=== PATIENT | male | born 1980 | race Caucasian/White ===

== ENCOUNTER → 2024-02-28 | Outpatient (CLI) | payer OTHER ==
[2024-02-29 02:11] LABS: Basophils # (A) 0.02 X 10*3/uL (0.00-0.10); Basophils % (A) 0.3 %; Eosinophils # (A) 0.07 X 10*3/uL (0.04-0.35); Eosinophils % (A) 0.9 %; HCT 46.1 % (39.6-50.0); HGB 14.5 g/dL (13.0-17.0); Lymphocytes # (A) 2.77 X 10*3/uL (0.90-5.00); Lymphocytes % (A) 34.8 %; MCH 26.2 pg (27.0-32.0); MCHC 31.5 g/dL (32.0-37.0); MCV 83.2 FL (80.0-97.0); Mean Platelet Volume 11.9 FL (9.5-12.2); Monocytes # (A) 0.36 X 10*3/uL (0.20-1.00); Monocytes % (A) 4.5 %; NRBC Per 100 WBC 0 X 10*3/uL (0.00-0.01); Neutrophils # (A) 4.71 X 10*3/uL (1.80-7.70); Neutrophils % (A) 59.2 %; Platelet Count 373 X 10*3/uL (140-440); RBC 5.54 X 10*6/uL (4.40-5.60); RDW 14.8 % (11.5-14.5); WBC 7.95 X 10*3/uL (4.50-10.00)
[2024-02-29 02:26] LABS: Erythrocyte Sedimentation Rate 8 mm/Hr (0-15)
[2024-02-29 02:41] LABS: ALT 25 U/L (10-49); AST 26 U/L (14-35); Alkaline Phosphatase 71 U/L (41-126); BUN/Creat Ratio 16.38 Ratio (12.00-20.00); Blood Urea Nitrogen 13.1 mg/dL (9.0-27.0); Calcium 9.2 mg/dL (8.7-10.3); Carbon Dioxide 24.7 mmol/L (21.6-31.8); Chloride 104 mmol/L (96-109); Glucose 104 mg/dL (70-110); Potassium 4.3 mmol/L (3.5-5.5); Sodium 138 mmol/L (135-145); Total Bilirubin 0.2 mg/dL (0.3-1.2)
[2024-03-04 13:37] LABS: C1 Esterase Inhibitor, Protein 33 mg/dL (21-39)
[2024-03-05 22:44] LABS: C1 Esterase Inhibitor Fnc Assy >100 %
[2024-03-06 07:36] LABS: Albumin 3.65 g/dL (3.80-4.90)
== END | disposition home or self-care (01) ==
LOC: LABWHC1 16:04
PROVIDERS: ATTEND Internal Medicine
DX: L50.9 Urticaria, unspecified (principal)
CPT/HCPCS: 36415; 80053; 84165; 84166; 84443; 85025; 85652; 86038; 86140; 86160; 86161; 86332

== ENCOUNTER → 2024-03-19 | Outpatient (CLI) | payer OTHER ==
--- NOTE | 2024-03-23 18:44 | CT ---
EXAMINATION TYPE: CT chest wo con CT DLP: Combined DLP of 2083.5 mGycm, Automated exposure control for dose reduction was used. DATE OF EXAM: 03/19/2024 7:33 PM COMPARISON: Chest x-ray 01/04/2016 . CLINICAL INDICATION:Male, 43 years old with history of R19.4 CHANGE BOWEL HABIT R10.9 ABD PAIN R06.02 SOB; PHH, SOB. Cough. COPD. TECHNIQUE: CT of the chest was performed without contrast. Axial soft tissue and lung algorithm image s at 5 mm slice thickness. Coronal and sagittal 3 mm reconstructions. 10 mm lung MIPS. Contrast used: mL of (None if empty) Oral contrast used: (None if empty) FINDINGS: Examination limited by lack of IV contrast. Also evaluation for any nodules under 5 mm is limited due to the slice thickness. LUNGS/ PLEURA: There appear to be mild emphysematous changes in the lung apices, with small cystic ai rspaces noted. There is a larger 2.3 cm cystic airspace with relatively thin circumscribed margin in the right upper lobe compatible with a bulla. No airspace consolidation, pleural effusion, or pneumot horax. No sizable lung nodules are detected. No evidence of mass. AIRWAY: Central airways are patent. There is a suggestion of a thin web in the mid bronchus intermedi us. LOWER NECK: No significant findings. MEDIASTINUM: No enlarged nodes by CT size criteria. No hilar adenopathy in the limits of unenhanced scan. HEART: Normal heart size. Minimal coronary artery calcification.. No appreciable pericardial effusion . VASCULATURE: No appreciable aortic atherosclerotic calcification.. Ascending aorta is 3.3 CM, descen ding is 2.5 CM. Aorta is considered within normal limits. Pulmonary trunk measures 2.8 CM. Pulmonary trunk is normal in size. Vessels otherwise not further ass essed without contrast. SOFT TISSUES/LYMPH NODES: Unremarkable soft tissues. No axillary adenopathy. UPPER ABDOMEN: No significant findings. Contrast seen in the stomach and bowel. Please refer to separ ate CT abdomen and pelvis report for further description of findings. MUSCULOSKELETAL: No acute bony abnormality in the chest. Minimal degenerative change of the shoulders and visualized spine. IMPRESSION: 1. Mild upper lobe pulmonary emphysematous changes. There is a 2.3 cm bulla in the right upper lobe. 2. No acute chest abnormality.
--- NOTE | 2024-03-25 08:47 | CT ---
EXAMINATION TYPE: CT abdomen pelvis w con CT DLP: Combined DLP of 2083.5 mGycm, Automated exposure control for dose reduction was used. DATE OF EXAM: 03/19/2024 7:33 PM COMPARISON: None. CLINICAL INDICATION:Male, 43 years old with history of R19.4 CHANGE BOWEL HABIT R10.9 ABD PAIN R06.02 SOB; Rt side abdominal pain. Change in bowel habit. TECHNIQUE: Axial CT of the abdomen and pelvis. Sagittal and coronal reformats were created on a [employer] workstation. Contrast used:100 ml mL of Isovue 300 with IV Contrast, (none if empty) Oral contrast used: with Oral Contrast (none if empty) FINDINGS: LOWER CHEST: Please see separate CT chest for findings ABDOMEN LIVER: Suspect mild steatosis. No focal lesions seen. Portal vein is enhancing. GALLBLADDER AND BILE DUCTS: Unremarkable gallbladder. No biliary ductal dilatation. PANCREAS: Unremarkable. SPLEEN: Unremarkable. ADRENAL GLANDS: Unremarkable. KIDNEYS AND URETERS: Kidneys enhance symmetrically. There is no visible calculus or hydronephrosis. A 3.7 cm cyst in the posterior left kidney. PELVIS BLADDER: Unremarkable REPRODUCTIVE: Unremarkable. ABDOMEN & PELVIS STOMACH AND BOWEL: Contrast traverses the stomach and small bowel loops without evidence of obstructi on. There is some contrast remaining in the stomach and the duodenum, with the majority of the contra st in the distal small bowel and colon. Appendix is contrast-filled and appears within normal limits . Fatty infiltration of the ileocecal valve. Contrast mixed with small amounts of stool throughout the majority of the colon, with not really any contrast beyond the proximal descending colon. More dista lly there is mild to moderate stool throughout the distal descending and sigmoid colon, without clear evidence to suggest an acute colonic abnormality by this exam. PERITONEUM/RETROPERITONEUM: No evidence of pneumoperitoneum or free fluid. VASCULATURE: Mild atherosclerotic calcifications are present throughout the abdominal aorta and its b ranches. No evidence of aortic aneurysm. IVC appears of normal caliber. LYMPH NODES: No enlarged nodes by CT size criteria. SOFT TISSUE/ABDOMINAL WALL: Unremarkable MUSCULOSKELETAL: No acute osseous abnormalities. Straightening of the normal lumbar lordosis without significant listhesis. Vertebral body heights are maintained. No significant degenerative changes. IMPRESSION: 1. No CT abnormality demonstrated to explain the patient's symptoms. 2. A few distal colonic diverticula, without evidence to suggest diverticulitis.
== END | disposition home or self-care (01) ==
LOC: RADCTMAIN 17:21
PROVIDERS: ATTEND Family Medicine
DX: K57.30 Diverticulosis of large intestine without perforation or abscess without bleeding (principal); R19.4 Change in bowel habit; R06.02 Shortness of breath
CPT/HCPCS: 71250; 74177; Q9967